=== PATIENT | female | born 1960 | race Caucasian/White ===

== ENCOUNTER → 2016-09-02 | Outpatient (CLI) | payer OTHER ==
[~2016-09-02] MED LIST: ASPI325T4; MELO-195; NF-ESOM40C PO; TRAM-21 PO; Vitamin B; ZLP10T; zocor PO
--- NOTE | 2016-09-03 11:10 | Diagnostic Imaging Report ---
Bilateral screening mammogram The current study was also evaluated with a Computer Aided Detection (CAD) system. Indication: Screening. No current complaints stated on the questionnaire. COMPARISON: 08/24/12 FINDINGS: The breasts are composed of heterogeneously dense parenchyma which may decrease mammographic sensitivity. There are scattered benign-appearing calcifications. Allowing for technique and positional differences, no suspicious change is seen. IMPRESSION: Dense breasts with no definite change. ACR BI-RADS Category 2: Benign findings. Result letter will be mailed to the patient. Note: At least 10% of breast cancer is not imaged by mammography. Dictated by: Dictated on workstation # [id number]
== END ==
LOC: RAD 10:17
PROVIDERS: ATTEND Nurse Practitioner Family
DX: Z12.31 Encounter for screening mammogram for malignant neoplasm of breast (principal)
CPT/HCPCS: 77067

== ENCOUNTER → 2017-11-18 | Outpatient (CLI) | payer OTHER ==
--- NOTE | 2017-11-18 12:07 | Diagnostic Imaging Report ---
Indication: Routine screening. INDICATION: Screening. COMPARISON: 09/02/2016 and 08/24/2012. TECHNIQUE: 2D and 3D bilateral screening mammography was performed with CAD. FINDINGS: Both breasts remain heterogeneously dense, limiting the sensitivity of mammography. The parenchymal pattern is stable. No mass or malignant appearing microcalcifications are seen. The axillae are unremarkable. IMPRESSION: No mammographic features suspicious for malignancy are identified. ACR BI-RADS Category 1: Negative. Result letter will be mailed to the patient. Note: At least 10% of breast cancer is not imaged by mammography. Dictated by: Dictated on workstation # [id number]
== END ==
LOC: RAD 08:23
DX: Z12.31 Encounter for screening mammogram for malignant neoplasm of breast (principal)
CPT/HCPCS: 77067

== ENCOUNTER → 2019-01-12 | Outpatient (CLI) | payer OTHER ==
--- NOTE | 2019-01-12 14:49 | Diagnostic Imaging Report ---
INDICATION: Routine screening. COMPARISON: 11/18/2017 and 09/02/2016. TECHNIQUE: 2D and 3D bilateral screening mammography was performed with CAD. FINDINGS: Both breasts remain heterogeneously dense, limiting the sensitivity of mammography. The parenchymal pattern is stable. No mass or malignant appearing microcalcifications are seen. Occasional benign calcifications are present. The axillae are unremarkable. IMPRESSION: No mammographic features suspicious for malignancy are identified. ACR BI-RADS Category 2: Benign findings. Result letter will be mailed to the patient. Note: At least 10% of breast cancer is not imaged by mammography. Dictated by: Dictated on workstation # [id number]
== END ==
LOC: RAD 08:18
DX: Z12.31 Encounter for screening mammogram for malignant neoplasm of breast (principal)
CPT/HCPCS: 77067

== ENCOUNTER → 2020-01-17 | Outpatient (CLI) | payer OTHER ==
--- NOTE | 2020-01-17 19:30 | Diagnostic Imaging Report ---
EXAM: Digital mammogram, bilateral screening. COMPARISONS: 01/12/2019, 11/18/2017 and 09/02/2016. There are no current complaints. History: Routine screening Technique: Bilateral 3D digital tomographic views were obtained with [employer] and reviewed on a [employer] workstation. In addition, CAD - computer aided detection was utilized. Findings: Breast Tissue Density B : The breast tissue is composed of mixed fatty and fibroglandular tissue. There are no suspicious masses, microcalcifications or areas of architectural distortion. Impression: No suspicious findings. BI-RADS Category 1: Negative. Normal interval followup. The patient will receive a letter with the results in the mail. A mammogram does not have 100% sensitivity and therefore a negative imaging study should not delay further work up of a suspicious abnormality. Patient information is entered into the [facility] reminder system using [employer] with a target due date for the next screening mammogram. The patient will receive a reminder. "Our facility is accredited by the [employer] Mammography Program." Dictated on workstation # [id number]
== END ==
LOC: RAD 08:45
DX: Z12.31 Encounter for screening mammogram for malignant neoplasm of breast (principal)
CPT/HCPCS: 77063; 77067

== ENCOUNTER → 2021-02-27 | Outpatient (CLI) | payer OTHER ==
--- NOTE | 2021-02-27 18:36 | Diagnostic Imaging Report ---
INDICATION: Routine screening. COMPARISON is made with prior mammograms from 01/17/2020 and 01/12/2019. 2-D and 3-D bilateral screening mammography was performed with CAD. Both breasts are heterogeneously dense, limiting the sensitivity of mammography. The parenchymal pattern is stable. No mass or malignant-appearing microcalcifications are seen. Axillae are unremarkable. IMPRESSION: BI-RADS Category 1 No mammographic features suspicious for malignancy are identified. ACR BI-RADS Category 1: Negative. Result letter will be mailed to the patient. Note: At least 10% of breast cancer is not imaged by mammography. Dictated by: Dictated on workstation # [id number]
== END ==
LOC: RAD 15:45
DX: Z12.31 Encounter for screening mammogram for malignant neoplasm of breast (principal)
CPT/HCPCS: 77063; 77067

== ENCOUNTER → 2022-09-09 | Outpatient (CLI) | payer OTHER ==
--- NOTE | 2022-09-10 11:31 | Diagnostic Imaging Report ---
INDICATION: Routine screening. COMPARISON: 02/27/2021 and 01/17/2020. TECHNIQUE: 2D and 3D bilateral screening mammography was performed with CAD. FINDINGS: Both breasts are heterogeneously dense, limiting the sensitivity of mammography. The parenchymal pattern is stable. No mass or malignant-appearing microcalcifications are seen. The axillae are unremarkable. IMPRESSION: No mammographic features suspicious for malignancy are identified. ACR BI-RADS Category 1: Negative. Result letter will be mailed to the patient. Note: At least 10% of breast cancer is not imaged by mammography. Dictated by: Dictated on workstation # [id number]
== END ==
LOC: RAD 15:13
PROVIDERS: ATTEND Nurse Practitioner Family
DX: Z12.31 Encounter for screening mammogram for malignant neoplasm of breast (principal)
CPT/HCPCS: 77063; 77067